=== PATIENT | male | born 1955 | race Caucasian/White ===

== ENCOUNTER → 2017-03-13 | Outpatient (CLI) | payer OTHER ==
[~2017-03-13] MED LIST: ALEVE220 MG PO; ASPIRIN325 MG PO; Coumadin,Jantoven PO; DILAUDID2 MG PO; FLECTOR 1.3%1 PATC1 TD; Feosol PO; MOTRIN800 MG PO; Protonix PO; Senokot S,Pericolace PO; TORADOL10 MG PO; VICODIN,LORT1 TABLET PO; Vicodin,Norco 5/325 PO; ZYVOX600 MG PO; celeBREX PO
== END | disposition home or self-care (01) ==
DX: R26.2 Difficulty in walking, not elsewhere classified (principal); M25.562 Pain in left knee; M25.662 Stiffness of left knee, not elsewhere classified; M62.81 Muscle weakness (generalized)
CPT/HCPCS: 97110 GP; 97150 GO; 97161 GP; 97165 GO

== ENCOUNTER 2017-03-29 12:22 | Emergency (ER) | payer OTHER ==
[~2017-03-29] VITALS: Ht 180.3 cm; Wt 103.7 kg
[2017-03-29 13:21] LABS: MCH 29.7 PG (29.0-34.0); MCHC 33.3 G/DL (30.0-36.0); MCV 89.2 FL (86-99); MEAN PLAT.VOLUME 10.1 uM^3 (9.0-12.4); PLATELET COUNT 198 K/uL (156-360); RBC DIS.WIDTH-SD 42.5 % (39-53); RED BLOOD COUNT 5.72 M/uL (4.00-5.50); WHITE BLOOD COUNT 8.9 K/uL (4.1-10.2)
[2017-03-29 13:30] LABS: CHLORIDE 105 mEq/L (99-109); POTASSIUM 4.5 mEq/L (3.7-5.4); SODIUM 136 mEq/L (136-147)
[2017-03-29 13:33] LABS: GLUCOSE 131 mg/dL (70-99)
[2017-03-29 13:34] LABS: ANION GAP 7 MEQ/L (2-14)
[2017-03-29 13:36] LABS: ADD MIUA? YES; BILIRUBIN NEGATIVE; BLOOD LARGE; COLOR YELLOW ((YELLOW)); GLUCOSE (STRIP) NEGATIVE; KETONES NEGATIVE; LEUKOCYTES NEGATIVE; NITRITE NEGATIVE; PROTEIN (STRIP) 100; SPECIFIC GRAVITY 1.028 (1.000-1.030); UROBILINOGEN 0.2 MG/DL (0.2-1.0)
[2017-03-29 13:36] LABS: ALKALINE PHOSPHATASE 75 IU/L (3-129); GFR ESTIMATE (CALCULATED) 47 mL/min/
[2017-03-29 13:37] LABS: UREA NITROGEN (BUN) 23 mg/dL (9-23)
[2017-03-29 13:52] LABS: BACTERIA NONE SEEN /HPF; EPITHELIAL CELLS NONE SEEN /HPF; MUCUS TRACE /LPF; RED BLOOD CELLS TNTC /HPF (0-5); UCUL ADDED? NO; WHITE BLOOD CELLS 0-5 /HPF (0-5)
[2017-03-29] MEDS ORDERED: DOXYCYCLINE HY100 MG PO (14:07)
[2017-03-29] MEDS ORDERED: TEMOVATE 0.05%30 GM TP (14:12)
[2017-03-29] MEDS ORDERED: FLOMAX0.4 MG PO (15:26)
[2017-03-29] MEDS ORDERED: ZOFRAN8 MG PO (15:26)
[2017-03-29] MEDS ORDERED: TORADOL10 MG PO (15:26)
[2017-03-29 15:51] VITALS: BP 127/81
== END 2017-03-29 15:52 | disposition home or self-care (01) ==
LOC: EME 12:22
DX: N13.2 Hydronephrosis with renal and ureteral calculous obstruction (principal); K80.20 Calculus of gallbladder without cholecystitis without obstruction; Z87.442 Personal history of urinary calculi; Z86.711 Personal history of pulmonary embolism; Z86.718 Personal history of other venous thrombosis and embolism; Z88.5 Allergy status to narcotic agent; Z88.0 Allergy status to penicillin
CPT/HCPCS: 74176; 80053; 81003; 85027; 99281; 99285; J1885; J2405

== ENCOUNTER 2017-04-01 10:14 | Inpatient (IN) | payer OTHER ==
[~2017-04-01] VITALS: Ht 154.9 cm; Wt 102.5 kg
[~2017-04-01 10:14] MED LIST changes: +DOXYCYCLINE HY100 MG PO; +FLOMAX0.4 MG PO; +TEMOVATE 0.05%30 GM TP; +ZOFRAN8 MG PO
[2017-04-27] MEDS ORDERED: CLOBEX118 ML TP (10:19)
[2017-04-27] MEDS ORDERED: CORMAX50 M1 TP (10:19)
[2017-04-27] MEDS ORDERED: ALEVE220 MG PO (10:21)
[2017-05-01 10:07] VITALS: BP 129/84
[2017-05-01 10:42] LABS: METH RESISTANT S AUREUS PCR NEGATIVE (NEGATIVE); PROBE CHECK PASS; SPECIMEN PROCESSING CONTROL PASS
[2017-05-01 16:42] VITALS: BP 153/96
[2017-05-01 20:17] VITALS: BP 142/91
[2017-05-02 00:19] VITALS: BP 154/87
[2017-05-02 04:09] VITALS: BP 141/93
[2017-05-02 06:10] LABS: HEMATOCRIT 40.3 % (38.0-50.0); MCV 90.6 FL (86-99)
[2017-05-02 06:39] LABS: ANION GAP 5 MEQ/L (2-14); CHLORIDE 106 MEQ/L (99-109); GFR ESTIMATE (CALCULATED) > 59 mL/min/; GLUCOSE 146 mg/dL (70-99); POTASSIUM 4.5 MEQ/L (3.7-5.4); SAMPLE HEMOLYSIS CHECK 0; SAMPLE ICTERIC CHECK 0; SAMPLE LIPEMIA CHECK 0; SODIUM 138 MEQ/L (136-147); UREA NITROGEN (BUN) 18 mg/dL (9-23)
[2017-05-02 08:00] VITALS: BP 152/100
[2017-05-02 11:40] VITALS: BP 143/80
[2017-05-02 15:44] VITALS: BP 143/92
[2017-05-02 19:56] VITALS: BP 105/55
[2017-05-03 00:15] VITALS: BP 144/88
[2017-05-03 04:05] VITALS: BP 121/62
[2017-05-03 05:48] LABS: HEMATOCRIT 37.4 % (38.0-50.0); MCV 89.7 FL (86-99)
[2017-05-03 07:44] VITALS: BP 129/71
[2017-05-03] MEDS ORDERED: DILAUDID2 MG PO (08:53)
[2017-05-03] MEDS ORDERED: ELIQUIS2.5 MG PO (08:53)
[2017-05-03 12:10] VITALS: BP 127/82
[2017-05-03 14:42] VITALS: BP 131/77
== END 2017-05-03 14:59 | DRG 470 ==
LOC: 2SOUTH → 3WEST 05-01 09:04 → 2SOUTH 05-01 09:16 → 3WEST 05-01 15:58
PROVIDERS: Orthopaedic Surgery
PROC: 0SRD0J9 Replacement of Left Knee Joint with Synthetic Substitute, Cemented, Open Approach (ICD-10-PCS; principal; 2017-05-01)
DX: M17.12 Unilateral primary osteoarthritis, left knee (principal); I50.9 Heart failure, unspecified; K21.9 Gastro-esophageal reflux disease without esophagitis; F41.9 Anxiety disorder, unspecified; L40.9 Psoriasis, unspecified; Z96.643 Presence of artificial hip joint, bilateral; Z86.14 Personal history of Methicillin resistant Staphylococcus aureus infection; Z86.711 Personal history of pulmonary embolism; Z86.718 Personal history of other venous thrombosis and embolism; Z98.1 Arthrodesis status; Z88.0 Allergy status to penicillin
CPT/HCPCS: 36415; 80048; 80053; 85014; 85018; 85025; 85610; 85730; 86900; 86901; 87641; C1713; J1885; J3010; J3370; J7050; J7120

== ENCOUNTER 2017-05-26 15:55 | Emergency (ER) | payer OTHER ==
[~2017-05-26] VITALS: Ht 180.3 cm; Wt 98.1 kg
[~2017-05-26 15:55] MED LIST changes: +CLOBEX118 ML TP; +CORMAX50 M1 TP; +ELIQUIS2.5 MG PO
[2017-05-26 16:40] LABS: HEMATOCRIT 39.3 % (38.0-50.0); MCH 29.9 PG (29.0-34.0); MCHC 33.3 G/DL (30.0-36.0); MCV 89.7 FL (86-99); MEAN PLAT.VOLUME 10.1 uM^3 (9.0-12.4); PLATELET COUNT 237 K/uL (156-360); RBC DIS.WIDTH-CV 13.6 % (11.8-14.6); RBC DIS.WIDTH-SD 44.6 % (39-53); RED BLOOD COUNT 4.38 M/uL (4.00-5.50); WHITE BLOOD COUNT 6.1 K/uL (4.1-10.2)
[2017-05-26 16:52] LABS: CHLORIDE 112 mEq/L (99-109); POTASSIUM 3.8 mEq/L (3.7-5.4); SODIUM 139 mEq/L (136-147)
[2017-05-26 16:54] LABS: GLUCOSE 91 mg/dL (70-99)
[2017-05-26 16:55] LABS: ANION GAP 5 MEQ/L (2-14)
[2017-05-26 16:58] LABS: GFR ESTIMATE (CALCULATED) > 59 mL/min/
[2017-05-26 16:59] LABS: UREA NITROGEN (BUN) 20 mg/dL (9-23)
[2017-05-26 17:03] LABS: TROP-I INTERPRETATION NEGATIVE; TROPONIN-I < 0.01 ng/mL (0.0-0.30)
[2017-05-26 20:02] LABS: TROP-I INTERPRETATION NEGATIVE; TROPONIN-I < 0.01 ng/mL (0.0-0.30)
[2017-05-26 20:49] VITALS: BP 132/76
[2017-05-27] MEDS ORDERED: ATIVAN1 MG PO (18:10)
[2017-05-27] MEDS ORDERED: ADVIL PM1 TABLET PO (18:10)
== END 2017-05-26 20:52 | disposition home or self-care (01) ==
LOC: EME 15:55
PROVIDERS: Emergency Medicine
DX: R07.89 Other chest pain (principal); F41.9 Anxiety disorder, unspecified; I25.10 Atherosclerotic heart disease of native coronary artery without angina pectoris; I50.9 Heart failure, unspecified; K80.20 Calculus of gallbladder without cholecystitis without obstruction; K76.0 Fatty (change of) liver, not elsewhere classified; N28.1 Cyst of kidney, acquired; Z86.718 Personal history of other venous thrombosis and embolism; Z86.711 Personal history of pulmonary embolism; Z96.643 Presence of artificial hip joint, bilateral; Z96.652 Presence of left artificial knee joint; Z98.1 Arthrodesis status; Z88.0 Allergy status to penicillin
CPT/HCPCS: 71010; 71275; 80048; 84484; 85027; 93005; 99281; 99285

== ENCOUNTER 2017-05-27 16:47 | Emergency (ER) | payer OTHER ==
[~2017-05-27] VITALS: Ht 180.3 cm; Wt 100.0 kg
[2017-05-27 17:14] LABS: HEMATOCRIT 37.9 % (38.0-50.0); MCH 30.6 PG (29.0-34.0); MCHC 33.5 G/DL (30.0-36.0); MCV 91.3 FL (86-99); PLATELET COUNT 210 K/uL (156-360); RBC DIS.WIDTH-CV 13.8 % (11.8-14.6); RED BLOOD COUNT 4.15 M/uL (4.00-5.50); WHITE BLOOD COUNT 6.3 K/uL (4.1-10.2)
[2017-05-27 17:22] LABS: CHLORIDE 111 mEq/L (99-109); POTASSIUM 3.9 mEq/L (3.7-5.4); SODIUM 142 mEq/L (136-147)
[2017-05-27 17:23] LABS: MAGNESIUM 1.9 mg/dL (1.3-2.7)
[2017-05-27 17:24] LABS: GLUCOSE 111 mg/dL (70-99)
[2017-05-27 17:25] LABS: ANION GAP 8 MEQ/L (2-14)
[2017-05-27 17:28] LABS: GFR ESTIMATE (CALCULATED) > 59 mL/min/
[2017-05-27 17:29] LABS: UREA NITROGEN (BUN) 21 mg/dL (9-23)
[2017-05-27 17:35] LABS: TROP-I INTERPRETATION NEGATIVE; TROPONIN-I < 0.01 ng/mL (0.0-0.30)
[2017-05-27] MEDS ORDERED: ADVIL PM1 TABLET PO (18:10)
[2017-05-27] MEDS ORDERED: ATIVAN1 MG PO (18:10)
[2017-05-27 20:25] LABS: TROP-I INTERPRETATION NEGATIVE; TROPONIN-I < 0.01 ng/mL (0.0-0.30)
[2017-05-27 20:51] VITALS: BP 103/83
== END 2017-05-27 20:53 | disposition left against medical advice (07) ==
LOC: EME 16:47
PROVIDERS: Physician Assistant
DX: R07.9 Chest pain, unspecified (principal); F41.9 Anxiety disorder, unspecified; Z86.711 Personal history of pulmonary embolism; Z86.718 Personal history of other venous thrombosis and embolism; M19.90 Unspecified osteoarthritis, unspecified site; R42 Dizziness and giddiness; R06.02 Shortness of breath; R61 Generalized hyperhidrosis; Z82.49 Family history of ischemic heart disease and other diseases of the circulatory system; Z86.14 Personal history of Methicillin resistant Staphylococcus aureus infection; Z96.643 Presence of artificial hip joint, bilateral; Z96.652 Presence of left artificial knee joint
CPT/HCPCS: 71020; 80048; 83735; 84484; 85027; 93005; 94640; 99281; 99285

== ENCOUNTER 2017-10-01 18:13 | Emergency (ER) | payer OTHER ==
[~2017-10-01] VITALS: Ht 180.3 cm; Wt 104.1 kg
[~2017-10-01 18:13] MED LIST changes: +ADVIL PM1 TABLET PO; +ATIVAN1 MG PO
[2017-10-01 19:23] LABS: HEMATOCRIT 49.5 % (38.0-50.0); MCH 30.4 PG (29.0-34.0); MCHC 34.9 G/DL (30.0-36.0); MCV 86.8 FL (86-99); MEAN PLAT.VOLUME 10.2 uM^3 (9.0-12.4); PLATELET COUNT 166 K/uL (156-360); RBC DIS.WIDTH-CV 13.7 % (11.8-14.6); RBC DIS.WIDTH-SD 43.4 % (39-53); WHITE BLOOD COUNT 8.6 K/uL (4.1-10.2)
[2017-10-01 19:31] LABS: CHLORIDE 107 mEq/L (99-109); POTASSIUM 4.1 mEq/L (3.7-5.4); SODIUM 139 mEq/L (136-147)
[2017-10-01 19:33] LABS: GLUCOSE 166 mg/dL (70-99)
[2017-10-01 19:34] LABS: ANION GAP 13 MEQ/L (2-14)
[2017-10-01 19:35] LABS: TOTAL BILIRUBIN 1.4 mg/dL (0.0-1.0)
[2017-10-01 19:37] LABS: ALKALINE PHOSPHATASE 78 IU/L (3-129); GFR ESTIMATE (CALCULATED) > 59 mL/min/ (58.99-99999)
[2017-10-01 19:37] LABS: ADD MIUA? YES; BILIRUBIN NEGATIVE; BLOOD MODERATE; COLOR YELLOW ((YELLOW)); GLUCOSE (STRIP) NEGATIVE; KETONES NEGATIVE; LEUKOCYTES NEGATIVE; NITRITE NEGATIVE; PROTEIN (STRIP) 100; SPECIFIC GRAVITY 1.028 (1.000-1.030); UROBILINOGEN 0.2 MG/DL (0.2-1.0)
[2017-10-01 19:38] LABS: UREA NITROGEN (BUN) 19 mg/dL (9-23)
[2017-10-01 19:44] LABS: TROP-I INTERPRETATION NEGATIVE; TROPONIN-I < 0.01 ng/mL (0.0-0.30)
[2017-10-01 19:49] LABS: BACTERIA RARE /HPF; EPITHELIAL CELLS RARE /HPF; HYALINE CASTS 0-5 /LPF; MUCUS 2+ /LPF; WHITE BLOOD CELLS 0-5 /HPF (0-5)
[2017-10-01] MEDS ORDERED: FLEXERIL10 MG PO (22:59)
[2017-10-01] MEDS ORDERED: ULTRAM50 MG PO (22:59)
[2017-10-01] MEDS ORDERED: NAPROSYN500 MG PO (22:59)
[2017-10-01 23:24] VITALS: BP 123/79
== END 2017-10-01 23:27 | disposition home or self-care (01) ==
LOC: EME 18:13
PROVIDERS: Nurse Practitioner Family
DX: M54.5 Low back pain (principal); K43.9 Ventral hernia without obstruction or gangrene; K80.20 Calculus of gallbladder without cholecystitis without obstruction; R31.9 Hematuria, unspecified; I50.9 Heart failure, unspecified; Z87.442 Personal history of urinary calculi; Z86.718 Personal history of other venous thrombosis and embolism; Z96.643 Presence of artificial hip joint, bilateral; Z96.652 Presence of left artificial knee joint; Z88.0 Allergy status to penicillin; Z88.6 Allergy status to analgesic agent
CPT/HCPCS: 74174; 80053; 81003; 84484; 85027; 87086; 93005; J1885; J2270; J2405; J7030

== ENCOUNTER 2017-10-07 16:35 | Emergency (ER) | payer OTHER ==
[~2017-10-07] VITALS: Ht 180.3 cm; Wt 105.9 kg
[~2017-10-07 16:35] MED LIST changes: +FLEXERIL10 MG PO; +NAPROSYN500 MG PO; +ULTRAM50 MG PO
[2017-10-07 19:55] VITALS: BP 130/89
== END 2017-10-07 19:56 | disposition home or self-care (01) ==
LOC: EME 16:35
DX: M54.5 Low back pain (principal); Z88.0 Allergy status to penicillin; Z88.1 Allergy status to other antibiotic agents; Z88.5 Allergy status to narcotic agent; Z88.6 Allergy status to analgesic agent
CPT/HCPCS: 99281; 99284; J1100